=== PATIENT | male | born 1980 | race Caucasian/White ===

== ENCOUNTER 2018-10-12 19:41 | Emergency (ER) | payer SELFPAY, MEDICAID ==
[2018-10-12] MEDS: ONDANSETRON (ODT) 4 MG TAB ODT (20:22)
[2018-10-12] MEDS: IBUPROFEN 800 MG TAB PO (20:22)
== END 2018-10-12 20:50 | disposition home or self-care (01) ==
LOC: E/R 19:41
DX: R11.10 Vomiting, unspecified (principal); F17.210 Nicotine dependence, cigarettes, uncomplicated; R19.7 Diarrhea, unspecified; R10.9 Unspecified abdominal pain
CPT/HCPCS: 93005; 99283-25